=== PATIENT | female | born 1960 | race Caucasian/White ===

== ENCOUNTER → 2017-03-15 | Outpatient (CLI) | payer OTHER | END | disposition home or self-care (01) | LOC: CFH 08:47 | PROVIDERS: ATTEND Family Medicine | DX: E04.1 Nontoxic single thyroid nodule (principal) | CPT/HCPCS: 76536 ==

== ENCOUNTER 2017-05-29 09:23 | Inpatient (IN) | payer OTHER ==
[2017-05-26 09:21] LABS: ASPARTATE AMINO TRANSFERASE 12 U/L (15-37); BLOOD UREA NITROGEN 11 mg/dL (7-18)
[~2017-05-29] VITALS: Ht 162.6 cm; Wt 104.6 kg
[~2017-05-29 09:23] MED LIST: EPINEPHRINE 1 MG/ML, 1ML ONE; HYDR-3342 PO; HYDR12.58 PO; MELO7.5T31 PO; METO50TA82 PO; SOLI5TAB2 PO
[2017-05-29] MEDS ORDERED: LIDOCAINE 1%, 2ML ONE (09:52)
[2017-05-29] MEDS ORDERED: LIDOCAINE 1%, 2ML SQ PRN (10:00)
[2017-05-29] MEDS ORDERED: FENTANYL PF 100 MCG/2ML ONE ×3 (10:05→14:29)
[2017-05-29] MEDS ORDERED: ONDANSETRON 2MG/ML, 2ML ONE (10:05)
[2017-05-29] MEDS ORDERED: MIDAZOLAM 1 MG/ML, 2ML ONE (10:05)
[2017-05-29] MEDS ORDERED: DEXAMETHASONE 4 MG/ML, 1ML ONE (10:05)
[2017-05-29] MEDS ORDERED: PROPOFOL 10 MG/ML, 20ML ONE ×2 (10:05→13:26)
[2017-05-29] MEDS ORDERED: LIDOCAINE GEL 2%, 5ML ONE (10:06)
[2017-05-29] MEDS ORDERED: LIDOCAINE-MPF 2% ,5ML ONE (10:06)
[2017-05-29] MEDS: LACTATED RINGERS 1,000 ML IV SCH ×2 (10:16→15:59)
[2017-05-29] MEDS ORDERED: SCOPOLAMINE PATCH, 1MG PATCH.TD72 TD ONE ×2 (11:31→11:33)
[2017-05-29] MEDS ORDERED: PHENYLEPHRINE 10 MG/ML ONE (11:33)
[2017-05-29] MEDS ORDERED: SUCCINYLCHOLINE 20 MG/ML, 10ML ONE (11:33)
[2017-05-29] MEDS ORDERED: METOCLOPRAMIDE 5 MG/ML, 2ML ONE (12:11)
[2017-05-29] MEDS ORDERED: hydrALAzine 20 MG/ML, 1ML IV PRN ×2 (12:30→16:00)
[2017-05-29] MEDS ORDERED: LABETALOL 5MG/ML, 20ML IV PRN (12:30)
[2017-05-29] MEDS ORDERED: PROMETHAZINE 25 MG/ML, 1ML IV PRN (12:30)
[2017-05-29] MEDS ORDERED: MEPERIDINE/PF 25MG/0.5ML IVPush PRN (12:30)
[2017-05-29] MEDS ORDERED: MIDAZOLAM 1 MG/ML, 2ML IV PRN (12:30)
[2017-05-29] MEDS ORDERED: DIAZEPAM 5 MG/ML, 2ML IVPush PRN (12:30)
[2017-05-29] MEDS ORDERED: ACETAMINOPHEN 325 MG TABLET PO PRN ×2 (12:30→16:00)
[2017-05-29] MEDS ORDERED: FENTANYL PF 100 MCG/2ML IV PRN (12:30)
[2017-05-29] MEDS ORDERED: HYDROmorphone 1 MG/ML, 1ML IV PRN (12:30)
[2017-05-29] MEDS ORDERED: ALBUTEROL/IPRATROPIUM 2.5MG/0.5MG, 3 ML NPPB PRN (12:30)
[2017-05-29] MEDS ORDERED: OXYcodone 5 MG/5 ML ORAL.SOL UDC PO PRN (12:30)
[2017-05-29] MEDS ORDERED: ONDANSETRON 2MG/ML, 2ML IVPush PRN (12:30)
[2017-05-29] MEDS ORDERED: OXYcodone 5 MG/5 ML ORAL.SOL UDC ONE (14:29)
[2017-05-29] MEDS ORDERED: ACETAMINOPHEN 650 MG/20.3 ML UDC ONE (14:29)
[2017-05-29] MEDS ORDERED: MEPERIDINE/PF 25MG/0.5ML ONE (14:41)
[2017-05-29] MEDS ORDERED: HYDROcodone/APAP 5/325 TABLET PO PRN (16:00)
[2017-05-29] MEDS ORDERED: ACETAMINOPHEN 650 MG SUPP PR PRN (16:00)
[2017-05-29] MEDS: POTASSIUM CHLORIDE 20 MEQ in D5%-0.45% NACL 1,000 ML IV SCH (18:11)
[2017-05-29] MEDS: METOPROLOL TARTRATE 50 MG TABLET PO SCH (18:11)
[2017-05-29] MEDS: CALCIUM/VITAMIN D3 250-125 TABLET PO SCH (18:11)
[2017-05-29 19:29] VITALS: BP 108/65
[2017-05-29] MEDS: SODIUM CHLORIDE FLUSH 10ML SYR IVF SCH (20:43)
[2017-05-29] MEDS: OXYBUTYNIN CHLORIDE 5 MG TABLET PO SCH (20:50)
[2017-05-29 20:51] VITALS: BP 103/60
[2017-05-30 02:00] VITALS: BP 110/66
[2017-05-30] MEDS: POTASSIUM CHLORIDE 20 MEQ in D5%-0.45% NACL 1,000 ML IV SCH (02:06)
[2017-05-30] MEDS: CALCIUM/VITAMIN D3 250-125 TABLET PO SCH ×2 (02:29→08:23)
[2017-05-30 04:53] LABS: PTH INTACT INTERPRETATION ** Comment **
[2017-05-30 05:20] LABS: PARATHYROID HORMONE INTACT 9.7 pg/mL (14-72)
[2017-05-30] MEDS: METOPROLOL TARTRATE 50 MG TABLET PO SCH (05:49)
[2017-05-30 05:50] VITALS: BP 101/49
[2017-05-30] MEDS ORDERED: LEVOTHYROXINE 175 MCG TABLET PO SCH (06:00)
[2017-05-30 07:45] VITALS: BP 116/73
[2017-05-30] MEDS: SODIUM CHLORIDE FLUSH 10ML SYR IVF SCH (08:24)
[2017-05-30] MEDS: OXYBUTYNIN CHLORIDE 5 MG TABLET PO SCH (08:24)
[2017-05-30] MEDS ORDERED: HYDROCHLOROTHIAZIDE 12.5 MG CAPSULE PO SCH (09:00)
[2017-05-30] MEDS ORDERED: HYDR-3240 PO (10:28)
[2017-05-30] MEDS ORDERED: LEVO175T2 PO (10:30)
[2017-05-30] MEDS ORDERED: CALC-118 PO (10:32)
== END 2017-05-30 10:41 | disposition home or self-care (01) | DRG 627 ==
LOC: OUT 09:23 → 4NOR 15:06 → OUT 16:06 → DCLOUNGE 05-30 10:15
PROVIDERS: ADMIT Surgery; ATTEND Surgery
PROC: 07B20ZZ Excision of Left Neck Lymphatic, Open Approach (ICD-10-PCS; 2017-05-29)
PROC: 4A11X4G Monitoring of Peripheral Nervous Electrical Activity, Intraoperative, External Approach (ICD-10-PCS; 2017-05-29)
PROC: 0GTK0ZZ Resection of Thyroid Gland, Open Approach (ICD-10-PCS; principal; 2017-05-29 12:00)
DX: E04.2 Nontoxic multinodular goiter (principal); R13.10 Dysphagia, unspecified; Q89.2 Congenital malformations of other endocrine glands
CPT/HCPCS: 36415; 80053; 82310; 83970; 88305; 88307; 88331; J0171; J1100; J2175; J2250; J2405; J2704; J3010; J3480; J3490; C1760; J0330; J2370; J2765; J7120